=== PATIENT | male | born 1965 | race Caucasian/White ===

== ENCOUNTER 2021-02-06 19:39 | Emergency (ER) | payer OTHER ==
[~2021-02-06] VITALS: Ht 165.1 cm; Wt 87.1 kg
[2021-02-06 19:43] VITALS: BP 178/112
--- NOTE | 2021-02-06 19:45 | NUR ---
ERMD MADE AWARE OF PT'S STROKE LIKE SYMPTOMS - [place] IN TRIAGE FOR PT ASSESSMENT.
--- NOTE | 2021-02-06 19:50 | NUR ---
CODE BRAIN CALLED TO CT.
--- NOTE | 2021-02-06 20:00 | NUR ---
PT ARRIVED BACK TO BED FROM CT
--- NOTE | 2021-02-06 20:07 | NUR ---
TELE NEURO ASSESSMENT ONGOING
--- NOTE | 2021-02-06 20:07 | NUR ---
EMT AT BEDSIDE OBTAINING EKG
--- NOTE | 2021-02-06 20:18 | NUR ---
CALLED TELEMED NEURO SPOKE TO JOE REGARDING DR ASSESSMENT, HE STATED HE WOULD SPEAK TO
[2021-02-06 20:23] LABS: BASOPHILS # (AUTO) 0.1 K/uL (0.00-0.22); BASOPHILS % (AUTO) 1.1 % (0.0-2.0); EOSINOPHILS # (AUTO) 0.3 K/uL (0-0.4); EOSINOPHILS % (AUTO) 3.6 % (0.0-4.0); HEMATOCRIT 41.6 % (36-52); HEMOGLOBIN 14.1 g/dL (12.0-18.0); LYMPHOCYTES # (AUTO) 1.7 K/uL (2.0-11.5); MEAN CORPUSCULAR HEMOGLOBIN 33 pg (27-31); MEAN CORPUSCULAR HGB CONC 34 g/dL (33-37); MEAN CORPUSCULAR VOLUME 97.6 fL (80-94); MONOCYTES # (AUTO) 0.5 K/uL (0.8-1.0); MONOCYTES % (AUTO) 6.9 % (1.7-9.3); NEUTROPHILS # (AUTO) 4.4 K/uL (1.8-7.7); NEUTROPHILS % (AUTO) 63.4 % (42.2-75.2); PLATELET COUNT (AUTO) 308 K/uL (140-450); RED BLOOD CELL COUNT(AUTO) 4.26 MIL/uL (4.20-6.10); RED CELL DISTRIBUTION WIDTH 13.6 % (11.6-13.7); WHITE BLOOD COUNT (AUTO) 6.9 K/uL (4.8-10.8)
--- NOTE | 2021-02-06 20:29 | NUR ---
DR BROUSSARD CALLED REQUESTING MD CONSULT WITH DR ST
[2021-02-06 20:32] LABS: PROTHROMBIN TIME 9.9 secs (10.8-13.4)
[2021-02-06 20:33] LABS: ALBUMIN 4.3 g/dL (3.4-5.0); ANION GAP 10.5 (8-16); CARBON DIOXIDE 28.3 mmol/L (21-32); POTASSIUM 3.8 mmol/L (3.5-5.1); TOTAL BILIRUBIN 0.5 mg/dL (0.0-1.0)
[2021-02-06] MEDS ORDERED: ALTEPLASE 100 MG VIAL IV ONE (20:35)
--- NOTE | 2021-02-06 21:40 | NUR ---
CALLED [facility] [place] AND GAVE REPORT TO VINCENT JUAN. PT AWAITING TRANSPORT, TPA ONGOING. WILL CONTINUE TO MONITOR.
--- NOTE | 2021-02-06 21:53 | NUR ---
Patient to be transferred to [facility] [place]. Is being transferred due to HIGHER LEVEL OF CARE. Receiving facility has accepting physician and available space. ER physician has signed transfer form. Patient or responsible democrat has agreed to transfer and signed form. Patient belongings inventoried and will be sent with patient. Copy of nursing notes, lab reports, EKG, Physicians Orders and X-rays to be sent with patient. Report called to VINCENT at receiving facility. [facility] ambulance service has ARRIVED for transfer. PT IS STABLE. CURRENTLY INFUSING TPA.
[2021-02-06 21:55] VITALS: BP 147/88
--- NOTE | 2021-02-07 19:20 | NUR ---
LATE ENTRY--- ATIVASE DISCONTINUED AT 2153.
== END 2021-02-06 20:54 | disposition designated cancer center or children's hospital (05) ==
LOC: MED 19:39
DX: I63.9 Cerebral infarction, unspecified (principal)
CPT/HCPCS: 36415; 70450; 71045; 80053; 84484; 85025; 85610; 85730; 86886; 86900; 86901; 96365; 99291; J2997